=== PATIENT | female | born 1955 | race Asian ===

== ENCOUNTER 2018-04-10 10:51 | Day surgery (SDC) | payer OTHER ==
[~2018-04-10 10:51] MED LIST: CEFAZOLIN 1 GM/50 ML (PMX) 50 ML IVPB; SOD CHLORIDE 0.9% 1,000 ML IV
[2018-04-10] MEDS ORDERED: PROPOFOL 20 ML (11:59)
[2018-04-10] MEDS ORDERED: ROCURONIUM 50 MG INJ (11:59)
[2018-04-10] MEDS ORDERED: ROPIVACAINE 0.2% 20 ML VIAL ×2 (11:59→12:03)
[2018-04-10] MEDS ORDERED: MIDAZOLAM 1 MG/ML 2 ML INJ (11:59)
[2018-04-10] MEDS ORDERED: BUPIVACAINE 0.25% (MPF) 30 ML INJ (12:49)
[2018-04-10] MEDS: BUPIVACAINE 0.25% (STERILE-PAK) 30 ML INJ INJ (13:00)
[2018-04-10] MEDS ORDERED: ONDANSETRON 4 MG INJ IV (13:00)
[2018-04-10] MEDS ORDERED: METOCLOPRAMIDE 10 MG INJ IV (13:00)
[2018-04-10] MEDS ORDERED: FENTAnyl 50 MCG/ML VIAL IV ×2 (13:00)
[2018-04-10] MEDS ORDERED: OXYCODONE/ACETAMINOPHEN (5/325) TAB PO (13:00)
[2018-04-10] MEDS ORDERED: LABETALOL HCL 20MG INJ IV (13:00)
[2018-04-10] MEDS ORDERED: MEPERIDINE 25 MG INJ IV (13:00)
[2018-04-10] MEDS ORDERED: DIPHENHYDRAMINE 50 MG INJ IV (13:00)
[2018-04-10] MEDS ORDERED: hydrALAzine 20 MG INJ IV (13:00)
[2018-04-10] MEDS ORDERED: EPHEDrine SULFATE 50 MG/5 ML SYG IV (13:00)
[2018-04-10] MEDS ORDERED: HYDROmorphONE 1 MG/5 ML IV SYRINGE IV ×3 (13:00)
[2018-04-10] MEDS ORDERED: METOCLOPRAMIDE 10 MG INJ (13:49)
[2018-04-10] MEDS ORDERED: CEFAZOLIN 1 GM INJ (13:49)
[2018-04-10] MEDS ORDERED: ONDANSETRON 4 MG INJ (13:49)
[2018-04-10] MEDS ORDERED: KETOROLAC 30 MG INJ (13:49)
[2018-04-10] MEDS ORDERED: DEXAMETHASONE 4 MG/ML 1 ML INJ (13:49)
[2018-04-10] MEDS ORDERED: GLYCOPYRROLATE 0.4 MG INJ ×2 (14:38→14:39)
[2018-04-10] MEDS ORDERED: NEOSTIGMINE 3 MG/3 ML SYRINGE (14:38)
[2018-04-10] MEDS ORDERED: LABETALOL HCL 20MG INJ (14:49)
[2018-04-10] MEDS ORDERED: morphine 2 MG INJ IV (15:00)
[2018-04-10] MEDS ORDERED: HYDROCODONE/APAP (5/325) TAB PO ×2 (15:00)
[2018-04-10] MEDS: FENTAnyl 50 MCG/ML VIAL IV (15:21)
== END 2018-04-10 17:13 | disposition home or self-care (01) ==
LOC: SDS 10:51
DX: K80.10 Calculus of gallbladder with chronic cholecystitis without obstruction (principal); R73.03 Prediabetes
CPT/HCPCS: 47562; 88304